=== PATIENT | male | born 1955 | race Caucasian/White ===

== ENCOUNTER 2024-03-27 04:26 | Day surgery (SDC) | payer OTHER, BC ==
[2024-03-26 09:48] VITALS: BMI 26.4
[2024-03-27 12:33] VITALS: TEMP 97.3
[2024-03-27 13:00] VITALS: BP 120/55; PULSE 65; RESP 18
== END 2024-03-27 13:56 | disposition home or self-care (01) ==
LOC: JASU-ENDO 04:26
PROVIDERS: ATTEND Internal Medicine Gastroenterology
PROC: 0DBK8ZX Excision of Ascending Colon, Via Natural or Artificial Opening Endoscopic, Diagnostic (ICD-10-PCS; principal; 2024-03-27 11:50)
DX: Z12.11 Encounter for screening for malignant neoplasm of colon (principal); D12.2 Benign neoplasm of ascending colon; K57.30 Diverticulosis of large intestine without perforation or abscess without bleeding; K59.00 Constipation, unspecified; Z86.010 Personal history of colon polyps
CPT/HCPCS: 88305-TC